=== PATIENT | male | born 1950 ===

== ENCOUNTER 2018-04-29 18:15 | Inpatient (IN) | payer MEDICARE, BC ==
[~2018-04-29] VITALS: Ht 188 cm; Wt 105.9 kg
[~2018-04-29 18:15] MED LIST: ALBU90OI INH; AMIO200 PO; CARV25 PO; DIGO.125 PO; LOSA25 PO; POTCHL20ER PO; TORSE20 PO; XARELTO20 MG PO
[2018-04-29] MEDS ORDERED: ASPI325EC PO (18:32)
[2018-04-29 19:41] LABS: BASOPHILS ABSOLUTE AUTO 0.04 K/mm3 (0.00-0.23); BASOPHILS PERCENT AUTO 1 % (0-2); EOSINOPHILS ABSOLUTE AUTO 0.11 K/mm3 (0.00-0.68); EOSINOPHILS PERCENT AUTO 3 % (0-6); Hematocrit 43.3 % (37.0-53.0); Hemoglobin 15.1 g/dL (13.5-17.5); IMMATURE GRAN ABSOLUTE AUTO 0.02 K/mm3 (0.00-0.10); IMMATURE GRAN PERCENT AUTO 1 % (0-1); LYMPHOCYTES ABSOLUTE AUTO 0.82 K/mm3 (0.84-5.20); LYMPHOCYTES PERCENT AUTO 20 % (21-46); MONOCYTES ABSOLUTE AUTO 0.86 K/mm3 (0.16-1.47); MONOCYTES PERCENT AUTO 20 % (4-13); Mean Corpuscular HGB 33.1 pg (26.0-34.0); Mean Corpuscular HGB Conc 34.9 g/dL (31.5-36.5); Mean Corpuscular Volume 95 fL (80-100); Mean Platelet Volume 8.9 fL (9.1-12.4); NEUTROPHILS ABSOLUTE AUTO 2.36 K/mm3 (1.96-9.15); NEUTROPHILS PERCENT AUTO 56 % (41-73); Platelet Count 113 K/mm3 (150-400); RDW Coefficient Variation 11.5 % (11.7-14.2); Red Blood Cell Count 4.56 M/mm3 (4.30-5.90); White Blood Cell Count 4.21 K/mm3 (4.00-11.30)
[2018-04-29 20:01] LABS: Alanine Aminotransfer (ALT/SGP 69 U/L (12-78); Albumin, Blood 3.7 g/dL (3.4-5.0); Alk Phos 92 U/L (50-136); Anion Gap 11 mmol/L (6-16); Aspartate Aminotrans (AST/SGOT 44 U/L (12-37); Bilirubin, Total 0.5 mg/dL (0.1-1.0); Blood Urea Nitrogen 12 mg/dL (8-24); Bun/Creatinine Ratio 16.8 (12.0-20.0); CO2, Blood 25 mmol/L (21-32); Chloride, Blood 99 mmol/L (98-108); Creatinine, Blood 0.72 mg/dL (0.60-1.20); Ethanol (Alcohol), Blood, Med 213 mg/dL; Globulin, Blood 3.8 g/dL (2.2-4.0); Glomerular Filtration Rate >60 (60-); Glucose, Blood 352 mg/dL (70-99); Potassium, Blood 4.1 mmol/L (3.5-5.5); Sodium, Blood 135 mmol/L (136-145); Total Protein, Blood 7.5 g/dL (6.4-8.2)
[2018-04-29 21:00] LABS: U Amphetamine Screen Not Detected; U Barbituate Screen Not Detected; U Benzodiazapine Screen Not Detected; U Buprenorphine Screen Not Detected; U Cannabinoids Screen Not Detected; U Cocaine Screen Not Detected; U Methadone Screen Not Detected; U Methamphetamine Screen Not Detected; U Opiates Screen Not Detected; U Oxycodone Screen Not Detected; U Phencyclidine Screen Not Detected; U Propoxyphene Screen Not Detected
--- NOTE | 2018-04-30 00:09 | NUR ---
ASSUMING CARE RECEIVED PT REPROT FROM ER NURSE. PT IS BEING ADMITTED DUE TO ETOH WITHDRAWAL. PT TRANSFERED TO THE ICU VIA STRETCHER ESCORTED BY ER NURSE. PT ABLE TO TRANSFER SELF TO ICU BED WITH MINIMAL ASSISTANCE. PT IS ALERT AND ORIENTED AT THE TIME OF ARRIVAL TO THE UNIT. PT IS CALM AND COOPERATIVE AT THIS TIME. PT REPROTS THAT HE DRINKS MULTIPLE BOTTLES OF WINE DAILY. PT IS TREMULOUS AT THE TIME OF ARRIVAL TO UNIT. PT PROVIDED 25MG LIBRIUM SHORTLY AFTER ARRIVAL TO UNIT. PT REPORTS THAT HE IS VERY TREMULOUS DAILY WHEN HE WAKES UP AND NEEDS TO DRINK TO REDUCE THE TREMORS AT HOME. PT STARTED ON NS AT 200ML/HR UPON ARRIVAL TO THE UNIT. PT BP WAS IN THE 160'S UPON ARRIVAL. BP DECREASED TO 140'S SYSTOLIC SHORTLY AFTER ARRIVAL. PT HR IS IN THE 110'S AND APPEARS TO BE SINUS AT THIS TIME. PT HAS A PREVIOUS HX OF A-FIB, NO A-FIB NOTED AT THIS TIME. PT IS ONLY EXHIBITING TREMORS AND MILD ANXIETY AT THIS TIME. PT DENIES ANY ONGOING AUDITORY OR VISUAL HALLUCINATIONS AT THIS TIME. PT REPORTS THAT HE HAS EXPERIENCED AUDITORY HALLUCINATIONS IN THE PAST. PT WAS FOUND TO HAVE ELVATED BLOOD GLUCOSE WITH LABS IN ER. PT HAS NO PREVIOUS HX OF DIABETES. PT REPORTS THAT HE HAS NOTICED DECREASED SENSATION IN HIS FEET THAT HAS INCREASED OVER "PAST COUPLE YEARS." ASSUMING CARE OF PT AT THE TIME OF ARRIVAL TO THE UNIT. PT IS CURRENTLY PCU STATUS. WILL CONTINUE TO MONITOR PT.
[2018-04-30 03:59] LABS: Alanine Aminotransfer (ALT/SGP 59 U/L (12-78); Albumin, Blood 3.1 g/dL (3.4-5.0); Albumin/Globulin Ratio 0.9 (0.8-1.8); Alk Phos 80 U/L (50-136); Anion Gap 8 mmol/L (6-16); Aspartate Aminotrans (AST/SGOT 40 U/L (12-37); Bilirubin, Total 0.8 mg/dL (0.1-1.0); Blood Urea Nitrogen 15 mg/dL (8-24); CO2, Blood 27 mmol/L (21-32); Calcium, Blood 8.2 mg/dL (8.5-10.1); Chloride, Blood 102 mmol/L (98-108); Creatinine, Blood 0.71 mg/dL (0.60-1.20); Globulin, Blood 3.5 g/dL (2.2-4.0); Glomerular Filtration Rate >60 (60-); Glucose, Blood 309 mg/dL (70-99); Potassium, Blood 3.9 mmol/L (3.5-5.5); Sodium, Blood 137 mmol/L (136-145); Total Protein, Blood 6.6 g/dL (6.4-8.2)
--- NOTE | 2018-04-30 07:18 | NUR ---
SHIFT SUMMARY NOTE PT HAS REMAINED ALERT AND ORIENTED WHILE AWAKE THROUGH THE NIGHT. PT HAS BEEN PROVIDED X3 25MG LIBRIUM AND X1 4MG ATIVAN IV THROUGH THE NIGHT. PT CIWA HAS INCREASED THROUGH THE NIGHT DESPITE MEDICATION ADMINISTRATION. PT CIWA AT THE TIME ATIVAN WAS ADMINISTRATED WAS APPROX 13. CIWA SCORES ARE MOSTLY RELATED TO TREMORS AND SWEATING. PT BP BECAME ELEVATED INTO THE 190'S AT APPROX 0500. BP DID NOT APPEAR TO RESPOND TO ATIVAN ADMINISTRATION. DR CLARK WAS CALLED AND ORDER RECEIVED FOR LABETELOL 10MG IV. LABETELOL PROVIDED ORDERED. PT HR HAS MAINTAINED IN THE 100-110'S THROUGH THE NIGHT. PT REMAINS ON NS AT 200ML/HR. PT BEGAN TO DESATURATE INTO THE HIGH 80'S WHILE SLEEPING AND 2L O2 WAS APPLIED. PT APPEARS TO BE MAINTAINING SPO2 IN THE HIGH 90'S WITH O2 VIA NC APPLIED. WILL REPORT [facility].
--- NOTE | 2018-04-30 13:36 | NUR ---
0800 PT SPEECH IS CLEAR BUT SLOW. DENIES PAIN OR DISTRESS. CIWA NOTED AT LEVEL 8. VS NOTED AND BP SL ELEVATED WITH PRN LOBRIUM GIVEN NOTED. PT UP TO TOILET WITH 1 PERSON SBA AND IS UNSTEADY ON FEET.
--- NOTE | 2018-04-30 13:41 | NUR ---
1300 PT IS AGAIN UP TO TOILET TO VOID AND BM. PT DENIES PAIN BUT IS CURRENTLY HAVING H/A BUT IMIPROVED AGTER UP TO [facility]. PT HAS TAKEN PO WELL AT BOTH MEALS. AND REMAIN MENTALLY CLEAR AND AWARE OF CONDITION WITH TREMORS REMAINING ABOUT THE SAME.
--- NOTE | 2018-04-30 15:33 | NUR ---
pt in bed surrounded by his daughter, grandsons, and mother. review of meds and CIWA scores with nursing. suggest decreasing some stimulus and addressing tremors. review with daughter startegies of care for her and her sons and family care. review of fathers history. 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 will update chaplian service for some supportive care and possible review startegies of rest and respite
--- NOTE | 2018-04-30 16:36 | NUR ---
PT RESTING WELL AND STATES HE COULD GO TO SLEEP. WILL FACILITATE SLEEP WITH LIGHTS OFF. PT HAS CALL LIGHT AND TREMORS ARE BETTER THAN 30-45 MIN AGO. CBG NOTED AND COVERED.
--- NOTE | 2018-04-30 18:16 | NUR ---
PT RESTING WELL WITH AT THIS TIME. EARLIER INSTRUCTED PT THAT HE WILL NOT BE AWAKENED FOR SUPPER. VS HAVE BEEN STABLE. TREMORS HAVE BEEN PRESENT TODAY BUT HAVE BEEN STEADY AND Q4H PRN LIBRIUM HAS MANNAGED SYMPTOMS.
--- NOTE | 2018-04-30 19:15 | NUR ---
ASSUMED PT CARE PT ASLEEP IN BED WITH BEDSIDE TABLE AND CALL LIGHT IN REACH. NS INFUSING AT 75MLS/HR. PT APPEARS COMFORTABLE AT THIS TIME.
--- NOTE | 2018-04-30 21:17 | NUR ---
NON-SUSTAINED V-TACH PT HAD AN EPISODE OF NON-SUSTAINED V-TACH AT APPROXIMATELY 1910; INFORMED DR. SWANSON WHO INPUTTED ORDERS FOR A STAT MAGNESIUM LAB.
[2018-05-01 04:07] LABS: Anion Gap 7 mmol/L (6-16); Blood Urea Nitrogen 14 mg/dL (8-24); Bun/Creatinine Ratio 18.8 (12.0-20.0); CO2, Blood 29 mmol/L (21-32); Chloride, Blood 99 mmol/L (98-108); Creatinine, Blood 0.74 mg/dL (0.60-1.20); Glomerular Filtration Rate >60 (60-); Glucose, Blood 186 mg/dL (70-99); Potassium, Blood 3.8 mmol/L (3.5-5.5); Sodium, Blood 135 mmol/L (136-145)
--- NOTE | 2018-05-01 04:53 | NUR ---
END OF SHIFT SUMMARY PT HAS BEEN PLEASANT AND COOPERATIVE WITH CARE ALL NIGHT. CIWA SCORES 10-11; MEDICATED WITH 50MG OF LIBRIUM Q4HRS PER CIWA. PT DENIED ANY AUDITORY, VISUAL, OR TACTILE HALLUCINCATIONS/DISTURBANCES; HOWEVER, DID CLAIM TO BE MILDLY ANXIOUS AND AT ONE POINT MENTIONED HE WAS EXPERIENCING SEVERE AGITATION THAT RESULTED IN TENSING UP. PT WAS REMINDED TO COMMUNICATE THOSE FEELINGS OF ANXIOUSNESS AND AGITATION IN ORDER FOR HIM TO BE MEDICATED APPROPRIATELY. PT CONTINUES TO BE VERY WEAK WITH TREMORS NOTED; THEREFORE, PT HAS BEEN A STANDBY ASSIST WITH USE OF TOILET. PT CONTINUES TO C/O ABDOMINAL PAIN; ATTEMPTED TO PASS A BOWEL MOVEMENT WITH NO SUCCESS. NS CONTINUES TO INFUSE AT 75MLS/HR THROUGH 20G IN LEFT FOREARM. PT MEDICATED X1 WITH LEBATOLOL D/T A SBP >200; MEDICATION WAS EFFECTIVE WITH SBP DECREASING TO 170'S. PT APPEARS TO BE COMFORTABLE AT THIS TIME WITH NO SIGNS OF ACUTE DISTRESS.
--- NOTE | 2018-05-01 10:16 | NUR ---
0745 PT ADMITS TO SL NAUSEA BUT NO H.A. PT TREMORS WITH EXTENDED ARMS IS ABOUT THE SAME. PT IS MENTALLY ALERT AND COOP WITH CARE AND PRN Q4 LIBRIUM HAS MAINTAINED SYMPTOMS AT CONSISTANT LEVEL.
--- NOTE | 2018-05-01 11:30 | NUR ---
PT REPORT CALLED TO MARK RIDER AND WILL TRANSFER TO [address] [place] [address] VIA W/C. PT CURRNETLY SLEEPING AND AROUSED FOR TRANSFER.
--- NOTE | 2018-05-01 18:37 | NUR ---
SHIFT SUMMARY PT TRANSFERRED FROM ICU THIS SHIFT. REPORT RECIEVED FROM CHIKA AT 1120. CIWA COMPLETED ON ARRIVAL. PT SCORING FROM 7 TO 12. MEDICATED PER EMAR. VSS. IV PATENT AND SALINE LOCKED. UP WITH 1 ASSIST. CBG MEASURED AC&HS, MEDICATED PER EMAR. PT EDUCATED ABOUT DIET AND DIABETES. PT PLEASANT AND COOPERATIVE WITH CARE. PT COMPLAINED OF CONSTIPATION, SUPPOSITORY ADMINISTERED PER EMAR. BED IN LOW POSITION, CALL LIGHT WITHIN REACH AND BED ALARM ON.
[2018-05-02 05:19] LABS: BASOPHILS ABSOLUTE AUTO 0.03 K/mm3 (0.00-0.23); BASOPHILS PERCENT AUTO 1 % (0-2); EOSINOPHILS ABSOLUTE AUTO 0.14 K/mm3 (0.00-0.68); EOSINOPHILS PERCENT AUTO 3 % (0-6); Hematocrit 41.2 % (37.0-53.0); IMMATURE GRAN ABSOLUTE AUTO 0.03 K/mm3 (0.00-0.10); IMMATURE GRAN PERCENT AUTO 1 % (0-1); LYMPHOCYTES ABSOLUTE AUTO 0.47 K/mm3 (0.84-5.20); LYMPHOCYTES PERCENT AUTO 11 % (21-46); MONOCYTES ABSOLUTE AUTO 0.95 K/mm3 (0.16-1.47); MONOCYTES PERCENT AUTO 23 % (4-13); Mean Corpuscular HGB 33.7 pg (26.0-34.0); Mean Platelet Volume 9.3 fL (9.1-12.4); NEUTROPHILS PERCENT AUTO 61 % (41-73); Platelet Count 84 K/mm3 (150-400); RDW Coefficient Variation 11.6 % (11.7-14.2); RDW Standard Deviation 42.5 fL (35.1-46.3); Red Blood Cell Count 4.16 M/mm3 (4.30-5.90); White Blood Cell Count 4.12 K/mm3 (4.00-11.30)
[2018-05-02 05:33] LABS: Mean Corpuscular Volume 99 fL (80-100)
[2018-05-02 05:40] LABS: Albumin, Blood 3.1 g/dL (3.4-5.0); Anion Gap 7 mmol/L (6-16); Blood Urea Nitrogen 14 mg/dL (8-24); Bun/Creatinine Ratio 17.9 (12.0-20.0); CO2, Blood 29 mmol/L (21-32); Calcium, Blood 8.5 mg/dL (8.5-10.1); Chloride, Blood 101 mmol/L (98-108); Creatinine, Blood 0.78 mg/dL (0.60-1.20); Glomerular Filtration Rate >60 (60-); Glucose, Blood 208 mg/dL (70-99); Phosphorus, Blood 3.9 mg/dL (2.5-4.9); Potassium, Blood 3.7 mmol/L (3.5-5.5); Sodium, Blood 137 mmol/L (136-145)
--- NOTE | 2018-05-02 06:37 | NUR ---
Rn summary: Patient is alert and oriented. Pt has required ativan x1 at the beginning of shift and Librium 50mg x2 this shift the last being 0522 for a CIWA of 10. Pt is mostly diaphoretic, mild CONNELLY and mod tremors. Pt up to the BR with walker. Pt states he is surprized how weak he is. Pt has not had any nausia. Pt has rested well and uses the call light appropriately. Emma changed this am.
--- NOTE | 2018-05-02 18:09 | NUR ---
PT IS A/OX3, PLEASANT AND COOPERATIVE, THE PT IS UP WITH 1 PERSON ASSIST TO THE BATHROOM, THE PT IS VERY WEAK AND SHAKEY ON HIS FEET, THE PT REPORTED A MILD-MODERATE CONNELLY T/O THE DAY, LIBRIUM 50 MG WAS GIVEN X2 TODAY FOR WITHDRAWL SYMPTOMS, CWAW 10, PT REPORTED HAVING SWEATS, CALL LIGHT IN REACH, BED IN THE LOW POSITION
--- NOTE | 2018-05-03 06:42 | NUR ---
SHIFT SUMMARY: Q4H CIWA SCORES PERFORMED THIS SHIFT. AT 2000, CIWA SCORE OF 12. ADMINISTERED 2MG IV ATIVAN AND 50 MG LIBRIUM. AT 0000, CIWA SCORE OF 7. NOTHING ADMINISTERED. AT 0400, CIWA SCORE OF 11. ADMINISTERED 2MG IV ATIVAN AND 50 MG LIBRIUM. PT IS EXPERIENCING BUE TREMORS, ANXIETY, N/V, DIAPHORESIS, AND HEADACHE. REMAINS A&O, PLEASANT, AND EXPRESSING CONFIDENCE IN BEING ABLE TO REMAIN SOBER. BP ELEVATED, HOWEVER NOT IN PARAMETERS FOR PRN IV HYDRALAZINE. PM CBG @ 323 - ADMINISTERED 9 UNITS OF HUMULIN. 20 G IN L F/A IS SALINE LOCKED. NO OTHER ACUTE CHNAGES TO REPORT WILL CONT MONITOR AND PROVIDE CARE UNTIL PRESUMED BY ONCOMING RN.
--- NOTE | 2018-05-03 07:37 | NUR ---
FALL PT EXPERIENCED FALL THIS AM DURING SHIFT CHANGE WHILE AMBULATING TO BATHROOM c PRESCHOOL PRINCIPAL. REVIEW FALL ASSESSMENT IN PROCESS INTERVENTIONS. PT ASSESSED AND ALL SYSTEMS WNL, BESIDES SMALL REDDENED AREA ON L SHOULDER. PT NOW A 2 PERS ASSIST c FWW AND GAIT BELT.
--- NOTE | 2018-05-03 15:53 | NUR ---
PT A/O X3, PLEASANT AND COOPERATIVE, THE PT IS A 1-2 PERSON ASSIST UP TO THE BATHROOM AND TO THE CHAIR, THE PT HAD A SHOWER TODAY, THE PT WAS GIVEN A SUPPOSITORY TODAY, AND HAD BOWEL MOVEMENT RESULTS, THE PT WAS MEDICATED WITH LIBRIUM FOR WITHDRAWL SYMPTOMS, LAST CWAW SCORE WAS 11, THE PT APPEARS TO BE BREATHING EASILY ON RA, PHYSICAL THERAPIST EVALUTED THE PT TODAY, CALL LIGHT IN REACH, FAMILY AT THE BEDSIDE, BED ALARM ON, BED IN THE LOW POSITION
--- NOTE | 2018-05-04 04:08 | NUR ---
CIWA 0400 APPEARS TO BE RESTING AT THIS TIME. LOW CIWA SCORE R/T REST. TM.
--- NOTE | 2018-05-04 05:13 | NUR ---
SHIFT SUMMARY A/O, ABLE TO MAKE NEEDS KNOWN. SOFT SPOKE; OFTEN TIMES DIFFICULT TO UNDERSTAND. COOPERATIVE WITH CARE. CIWA 0026 YEILDED TOTAL OF 6. CIWA @ 0400; APPEARED TO BE RESTING AT THAT TIME; AROUSED EASILY; CIWA TOTAL OF 1. STATED JUST WANTED TO GO BACK TO SLEEP. 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 BLOOD SUGAR 219; ADMINISTERED 5 UNITS OF INSULIN. NO ACUTE CHANGES NOTED OVERNIGHT. VSS/AFEBRILE. HYPERTENSION NOTED, BUT APPEARS ON TREND WITH SOME PREVIOUS PRESSURE. BED IN LOWEST POSITION. CALL LIGHT AND BELONGINGS WITHIN REACH. WCTM. REPORT TO ONCOMING RN.
--- NOTE | 2018-05-04 11:03 | NUR ---
Mr Yancey wanted his door closed and some quiet time. Review of CIWA and symptoms with nursing. Met with chaplian service for strategic plan of support anika Flynn will meet with pt. will update SS on follow up care connections. Spoke with family about some self care strategies last week will reenforce.
--- NOTE | 2018-05-04 15:48 | NUR ---
Patient was asleep when I entered the room and revived a bit when I spoke his name. Patient remained sleepy throughout the visit but was able to follow along with conversation. Patient was able to communicate that he was struggling with guilt, despair and addiction. I listened emapathically, explored issues of oliver and belief and sources of meaning and dignity. Patient presented as being very honest and as if he was speaking from the heart. The conversation was deep and led to what I believe were very sincere prayers from the patient and myself. I further encouraged patient to pursue his belief system. Patient's facial expressions and statements showed a gratitude for the visit, a restored oliver and a plan to head in a healthier direction. Pt. was smiling and more alert as I left the room.
--- NOTE | 2018-05-04 17:30 | NUR ---
Nursing advised family would like to speak called pt to brandon startegies of care and follow up. she is goint to [employer] tomorrow for packet. Briefly reviewed inpaitent vs out patient care. fears he has ETOH hid in his gun safe. She states she cannot access safe. but has removed the one weapon in the house. states she is totally unprepared for his needs and did not understand the detox process would be this hard. She has signed up for a [employer] group online. Met with pt he is somulent and fatigued. when awake he states he has a headache and at times buzzing in ears and light sensitive and sweating. He states he has chronic low grade pain in his hip, knee and leg. he states he is fatigued and sleeping. He states at home he wakes easily. he get up at 4 am with anexiety and fear of withdrawl but also its a cycle of knocking down the anexiety. He has been constipated. He states if he has fallen at home he does not know it. He is very fatigued and beating himself up for being a fool. Kept conversation minimal and supportive. Brief review of the fatiue and acheyness he will have the next. Provided brief supportive statements about care for him and his family. reenforced holistic care not just addiction care. will have chaplian follow and will update family.
--- NOTE | 2018-05-04 18:12 | NUR ---
SUMMARY PT SITTING UP IN BED EATING HIS DINNER, PT HAS BEEN MEDICATED PER EMAR FOR CIWA SCORES, PT HAS BEEN PLEASANT AND COOPERATIVE WITH CARE, VERY WEAK AND UNSTEADY ON HIS FEET, VSS, NO ACUTE CHANGES, WILL CONT TO MONITOR
--- NOTE | 2018-05-05 01:08 | NUR ---
0018 PT APPEARS TO BE RESTING AT THIS TIME. WCTM. BED IN LOWEST POSITION. CALL LIGHT IN REACH.
--- NOTE | 2018-05-05 05:17 | NUR ---
SHIFT SUMMARY A/O, ABLE TO MAKE NEEDS KNOWN. COOPERATIVE WITH CARE. DIFFICULT TO UNDERSTAND AT TIMES. MEDICATED PER EMAR FOR CIWA SCORES. APPEARED TO REST MOST OF SHIFT. VSS/AFEBRILE. DID NOT GET UP DURING THE NIGHT TO VOID AND DID NOT VOID THIS SHIFT. WILL ENCOURAGE THIS AM TO GET OOB. BED IN LOWEST POSITION. CALL LIGHT IN REACH. WCTM. REPORT TO ONCOMING RN.
[2018-05-05 11:56] LABS: Hematocrit 42.2 % (37.0-53.0); Hemoglobin 14.1 g/dL (13.5-17.5); Mean Corpuscular HGB 33.3 pg (26.0-34.0); Mean Corpuscular HGB Conc 33.4 g/dL (31.5-36.5); Mean Corpuscular Volume 100 fL (80-100); Mean Platelet Volume 9.3 fL (9.1-12.4); Platelet Count 103 K/mm3 (150-400); RDW Coefficient Variation 11.7 % (11.7-14.2); RDW Standard Deviation 42.1 fL (35.1-46.3); Red Blood Cell Count 4.24 M/mm3 (4.30-5.90); White Blood Cell Count 4.91 K/mm3 (4.00-11.30)
[2018-05-05 12:15] LABS: Anion Gap 6 mmol/L (6-16); Blood Urea Nitrogen 18 mg/dL (8-24); CO2, Blood 30 mmol/L (21-32); Calcium, Blood 8.5 mg/dL (8.5-10.1); Chloride, Blood 101 mmol/L (98-108); Creatinine, Blood 0.69 mg/dL (0.60-1.20); Glomerular Filtration Rate >60 (60-); Glucose, Blood 236 mg/dL (70-99); Potassium, Blood 3.9 mmol/L (3.5-5.5); Sodium, Blood 137 mmol/L (136-145)
--- NOTE | 2018-05-05 14:51 | NUR ---
I entered patient's room and was welcomed by the Patient and his Augustine. The conversation was immediately built on therapeutic alliance and covered everything from what steps they need to take moving forward to family unit dynamics. I provided pastoral counseling and spiritual direction and reinforced helpful attitudes and practices. I also provided prayer. Both patient and spouse were touched by the prayer as shown by their tears. Both expressed gratitude and restored oliver
--- NOTE | 2018-05-05 17:24 | NUR ---
SUMMARY PT RESTING QUIETLY IN BED, WAKES EASILY, PT CONT TO HAVE TREMORS AND IS DIAPHORETIC, OCC HEADACHES AND BUZZING IN HIS EARS, PT HAS BEEN MED PER EMAR FOR SYMPTOMS, PT HAS BEEN UP TO THE BATHROOM WITH 2 PERSON ASSIST, GAIT BELT AND WALKER, PT TAKES VERY SLOW SHUFFLING STEPS, PT IS PLEASANT AND COOPERATIVE WITH CARE, WILL CONT TO MONITOR
--- NOTE | 2018-05-06 07:57 | NUR ---
Rn summary: Patient is very sleepy. Pt c/o some headache and is diaphoretic. Pt also states he is very anxious but when asked, he states he has a history of being anxious and that is why he drank for 40 yrs was to deal with the anxiety. Pt has increased weakness from last week. He struggled to walk back from the BR. Pt pharmacist apprentice are equal but weak. Pt does have slight felt tremors. Medicated with libruim 25mg for CIWA of 9 at 2151 and Ativan 2mg for CIWA of 0200. Pt has slept soundly since. Pt speech is mumbly, possible sedation? Will continue to monitor, report to day shift nurse about concerns for weakness. Call light in reach.
--- NOTE | 2018-05-06 18:13 | NUR ---
SHIFT SUMMARY THE PATIENT PRESENTED THIS MORING WITH VITALS WNL, A&O X3 AND WITH LUNGS THAT WERE CLEAR, BUT DIM AT THE BASES. THE PATIENT HAS BEEN UP TO HIS CHAIR AND TO THE REST ROOM SEVERAL TIMES TODAY AND APPEARS MORE STUDY ON HIS FEET, WITH THE USE OF A WALKER. THE PATIENT ONLY REQUESTED ATIVAN ONCE TODAY. THE PATIENT RAMONELY WAS IN TODAY TO VISITED THE PATIENT. THE PATIENT'S DOCTOR REQUESTED THAT THE PATIENT BE ENCOURAGED TO WALK MUCH POSSIBLE. THE PATIENT IS EATING DINNER AT THIS TIME, WILL CONTINUE TO MONITOR.
--- NOTE | 2018-05-07 04:34 | NUR ---
Rn summary: Patient is alert but drowsy. Patient did walk to the BR at the beginning of shift with 2 assist and gaitbelt with walker. Pt walked very slowly. Pt states he is having some left leg pain from the knee to hip, no swelling or warmth noted during assessment. Pt states his neck and upper shoulders are tight and uncomfortable. Warm pack applied. Pt medicated x1 with ativan 2 mg for anxiety, diaphoresis. No tremors noted, Pt states he is sensitive to light and has a mild headache. Pt has slept soundly the rest of the shift. Breath sounds are diminished. Pt encouraged to deep breath, turn and reposition himself in bed, move his legs and ankles often. Will continue to monitor. Bogdan light in reach.
--- NOTE | 2018-05-07 16:33 | NUR ---
SHIFT SUMMARY THE PATIENT PRESENTED THIS MORNING WITH VITALS WNL, A&O X4 AND WITH LUNGS THAT WERE CLEAR, BUT DIM THROUGHOUT. THE PATIEN HAS BEEN UP TO HIS CHAIR AND TO THE RESTTROOM SEVERAL TIMES TODAY AND IS ENCOURAGED TO WALK MORE, BUT IS STILL VERY WEAK. THE PATIENT WAS GIVEN ANDD INSTRUCTED HOW TO USE AN INCENTIVESPIROMITOR TO HELP CLEAR HIS LUNGS WITH DR. KAYCE CAMPOVERDE. THE PATIENT HAS BEEN RESTING HEN NOT IN HIS CHAIR, WILL CONTINUE TO MONITOR.
[2018-05-08 05:25] LABS: BASOPHILS ABSOLUTE AUTO 0.05 K/mm3 (0.00-0.23); BASOPHILS PERCENT AUTO 1 % (0-2); EOSINOPHILS ABSOLUTE AUTO 0.19 K/mm3 (0.00-0.68); EOSINOPHILS PERCENT AUTO 4 % (0-6); Hematocrit 41.4 % (37.0-53.0); Hemoglobin 13.7 g/dL (13.5-17.5); IMMATURE GRAN ABSOLUTE AUTO 0.02 K/mm3 (0.00-0.10); IMMATURE GRAN PERCENT AUTO 1 % (0-1); LYMPHOCYTES ABSOLUTE AUTO 0.76 K/mm3 (0.84-5.20); LYMPHOCYTES PERCENT AUTO 18 % (21-46); MONOCYTES PERCENT AUTO 28 % (4-13); Mean Corpuscular HGB 32.8 pg (26.0-34.0); Mean Corpuscular HGB Conc 33.1 g/dL (31.5-36.5); Mean Corpuscular Volume 99 fL (80-100); Mean Platelet Volume 9.4 fL (9.1-12.4); NEUTROPHILS ABSOLUTE AUTO 2.07 K/mm3 (1.96-9.15); NEUTROPHILS PERCENT AUTO 48 % (41-73); Platelet Count 136 K/mm3 (150-400); RDW Coefficient Variation 11.5 % (11.7-14.2); RDW Standard Deviation 42.1 fL (35.1-46.3); Red Blood Cell Count 4.18 M/mm3 (4.30-5.90); White Blood Cell Count 4.29 K/mm3 (4.00-11.30)
[2018-05-08 05:37] LABS: Anion Gap 6 mmol/L (6-16); Blood Urea Nitrogen 17 mg/dL (8-24); CO2, Blood 30 mmol/L (21-32); Calcium, Blood 8.4 mg/dL (8.5-10.1); Chloride, Blood 102 mmol/L (98-108); Creatinine, Blood 0.85 mg/dL (0.60-1.20); Glomerular Filtration Rate >60 (60-); Glucose, Blood 131 mg/dL (70-99); Potassium, Blood 3.9 mmol/L (3.5-5.5); Sodium, Blood 138 mmol/L (136-145)
--- NOTE | 2018-05-08 07:49 | NUR ---
Rn Summary: Patient is more alert tonight. His speech is much more clear. He is stronger and walking faster back and forth to the BR. Still needs gait belt and FWW and 2 assist. Pt has had increased anxiety this am. Rested well until about 4. He states he is amazed at his weakness and anxiety he has experienced with his Etoh detox. Talked with and education given about his etoh use and detox. Encouragement given. Pt recieved dose of ativan 2mg this am at 0430 and repeated at 0630 due to severe anxiety. Pt states he felt so anxious he tried to climb out of bed to set off the bed alarm because staff hadnt come fast enough. Report to Emma RIDER. Call light in reach. Anxiety a little better.
--- NOTE | 2018-05-08 17:21 | NUR ---
*LATE ENTRY* DR BERGER ROUNDED ON THE PT. PLAN IS TO AMBULATE PT TODAY AND REDUCE THE USE OF SEDATING MEDICATION, TO SEE IF THE PT IMPROVES MORE. SPOKE TO FREDERICK FROM PHYSICAL THERAPY HE WILL SEE THE PT LATER TODAY. PER REPORT FROM NIGHT RN PT HAS IMPROVED GREATLY THROUGH THE WEEKEND AND WAS ABLE TO AMBULATE 2 PA TO THE BATHROOM.
--- NOTE | 2018-05-08 17:23 | NUR ---
*LATE ENTRY* PT WAS ABLE TO STAND AND PIVOT TRANSFER 1PA WITH A GAIT BELT AND ASSISTANCE WITH WEIGHT SHIFTING, TO THE CHAIR AT THE BEDSIDE. PT SEEMS TO BE BECOMING MORE ALERT. APPROXIMATELY [id number].
--- NOTE | 2018-05-08 17:26 | NUR ---
*LATE ENTRY* 1125 PT AMBULATED FROM THE CHAIR TO THE BATHROOM 2PA, MOVED BETTER THAN HE DID THIS MORNING, HAD A SMALL BM AND WENT BACK TO BED PRIOR TO LUNCH. PT STATED HE WILL GET UP INTO THE CHAIR FOR LUNCH.
--- NOTE | 2018-05-08 17:27 | NUR ---
*LATE ENTRY* PT WORKED WITH FREDERICK FROM PHYSICAL THEARAPY, AMBULATED TO THE BATHROOM. PT LISTING TO THE RIGHT MORE AFTER WORKING WITH THERAPY.
--- NOTE | 2018-05-08 17:30 | NUR ---
*LATE ENTRY* 1430 PT SPOUSE PRESENT IN THE ROOM, ASKED ABOUT PT BP'S AND MEETING WITH BIRDIE PARR THIS MORNING, CALLED BIRDIE TO HAVE HER COME SEE THE PT AND HIS SPOUSE. PT BP RECHECKED AND MEDS GIVEN, SPOUSE ASKED ABOUT DR BERGER, SHE WAS CONCERNED ABOUT THE CONVERSATION HE HAD WITH THE PT THIS AM, IT WAS RELAYED TO HER BY THE PT SHE WAS VERY CONFUSED ABOUT WHAT WAS SAID. RN UNABLE TO CLARIFY NOT PRESENT FOR THAT ENTIRE CONVERSATION. PT SPOUSE WANTED TO TALK ABOUT PT DISCHARGE PLAN AND IS INQUIREING WHY SNF IS NOT AN OPTION. SHE STATED SHE IS CONCERNED AND CAN NOT TAKE THE PT HOME THE WAY HE IS. CALLED DISCHARGE PLANNING TO PROVIDE RESOURCES TO THE PT. SPOUSE CONCERNED ABOUT SOME WORDING THAT THE DOCTOR USED THIS MORNING IN THE CONVERSATION WITH THE PT (SHE WAS NOT PRESENT FOR THE DR VISIT). REQUESTED A NEW DOCTOR, CALLED DR BERGER AND LEFT A MESSAGE AND INFORMED HOSPITALIST OFFICE OF THE PT REQUEST. SPOKE TO DR BERGER HE WILL BE COMING IN TOMORROW TO SEE THE PT, PLANNING FOR 10AM, PASSED THIS ON TO THE PT SPOUSE, SHE WILL PLAN TO BE HERE AT THAT TIME.
--- NOTE | 2018-05-08 18:24 | NUR ---
Scottie visits today with pt and family. pt still fatigued with headache and states he fees shakey. meka has lessened as day goes on. Called to meet with about concerns for future care and rehab. She fears he will fall at home. she is hopefull he will improve over next 24 hours. She has looked at dc and [facility]. 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 will update chaplins. Will get permission to have a sponser come see him.
--- NOTE | 2018-05-08 19:30 | NUR ---
SHIFT SUMMARY- PT HAS SHOWN COGNITIVE AND PHYSICAL IMPROVEMENT T/O THE SHIFT. AT CHANGE OF SHIFT PT WAS ASSISTED TO THE BATHROOM 1 PERSON WITH A FWW AND GAIT BELT CONTACT GUARD ASSIST. PT HAS BALANCE ISSUES AND NEEDS FREQUENT QUES. FOLLOWS DIRECTION WELL. WHEN HE FIRST STANDS HE TENDS TO TIP OVER BACKWARDS, HE SEEMS TO DEVIDE HIS WEIGHT WHEN HE THINKS ABOUT WALKING FORWARD. WHEN PROMPTED TO TAKE A STEP FORWARD HE REGAINS HIS BALANCE.
--- NOTE | 2018-05-09 04:38 | NUR ---
VSS, AFEBRILE, A/O AT TIMES, CONFUSED/ANXIOUS/FORGETFUL OTHER TIMES, CIWA PRN, 1 - 2 PA W/FWW TO BR, NO IV - MD OK. PLACEMENT ISSUE, IS REPORTED TO BE UPSET W/CARE. PLEASE READ NOTES.
--- NOTE | 2018-05-09 14:32 | NUR ---
Patient was resting when I entered the room but revived quickly as I quietly said his name. Patient seemed genuinely excited about his health improvements but voiced his concerns about the long road ahead. We talked about next steps in recovery and he expressed how wonderful the care has been that he received at [facility]. Patient mentioned that some good systems are in place and even though I offered further resources he felt they were headed in a good direction. I provided pastoral counseling center manager, inspirational quotes, reinforced helpful attitudes and practices. I also provided prayer to which the patient responded well. Patient expressed gratitude for my spiritual care during his stay and for the support given to his family and himself during this rough season.
--- NOTE | 2018-05-09 18:55 | NUR ---
PT UP TO CHAIR FOR MEALS TODAY, AMBULATED IN [place] WITH PHYSICAL THERAPY, SEE THERAPY NOTES. NO ACUTE CHANGES NOTED THIS SHIFT, WILL CONTINUE TO MONITOR AND REPORT TO ONCOMING RN.
--- NOTE | 2018-05-10 04:51 | NUR ---
VSS, AFEBRILE, A/O, MUCH MORE LUCID AND APPROPRIATE NOW, 1 PA W/FWW TO BR, NO IV - MD OK, CBG ACHS, PT WALKS AND RESPONDS MUCH BETTER THAN HE HAS BEFORE. PMHX: ETOH ABUSE, HTN. PT IS PLEASANT, JOKING AND IN GOOD SPIRITS.
[2018-05-10 05:08] LABS: BASOPHILS ABSOLUTE AUTO 0.06 K/mm3 (0.00-0.23); BASOPHILS PERCENT AUTO 2 % (0-2); EOSINOPHILS ABSOLUTE AUTO 0.19 K/mm3 (0.00-0.68); EOSINOPHILS PERCENT AUTO 6 % (0-6); Hematocrit 41.4 % (37.0-53.0); IMMATURE GRAN ABSOLUTE AUTO 0.01 K/mm3 (0.00-0.10); IMMATURE GRAN PERCENT AUTO 0 % (0-1); LYMPHOCYTES ABSOLUTE AUTO 0.68 K/mm3 (0.84-5.20); LYMPHOCYTES PERCENT AUTO 20 % (21-46); MONOCYTES ABSOLUTE AUTO 0.86 K/mm3 (0.16-1.47); MONOCYTES PERCENT AUTO 26 % (4-13); Mean Corpuscular HGB 33.4 pg (26.0-34.0); Mean Corpuscular HGB Conc 33.8 g/dL (31.5-36.5); Mean Corpuscular Volume 99 fL (80-100); Mean Platelet Volume 9.2 fL (9.1-12.4); NEUTROPHILS ABSOLUTE AUTO 1.55 K/mm3 (1.96-9.15); NEUTROPHILS PERCENT AUTO 46 % (41-73); Platelet Count 131 K/mm3 (150-400); RDW Coefficient Variation 11.4 % (11.7-14.2); RDW Standard Deviation 41.1 fL (35.1-46.3); Red Blood Cell Count 4.19 M/mm3 (4.30-5.90); White Blood Cell Count 3.35 K/mm3 (4.00-11.30)
[2018-05-10 05:40] LABS: Anion Gap 6 mmol/L (6-16); Blood Urea Nitrogen 15 mg/dL (8-24); Bun/Creatinine Ratio 18.8 (12.0-20.0); CO2, Blood 29 mmol/L (21-32); Calcium, Blood 8.5 mg/dL (8.5-10.1); Chloride, Blood 102 mmol/L (98-108); Glomerular Filtration Rate >60 (60-); Glucose, Blood 118 mg/dL (70-99); Sodium, Blood 137 mmol/L (136-145)
--- NOTE | 2018-05-10 13:32 | NUR ---
As I entered the patient's room I immediately noticed that the patient had better color, alertness and awareness. Patient greeted me warmly and was easy to engage in conversation. Patient expressed some apprehension about the road that lies ahead of him. I tried to make every resource and support that I thought might help, available. I provided some ideas that are laid out in the Bible as tools for recovery as well. I listened empathically and encouraged self-care. Patient expressed gratitude for my visits.
--- NOTE | 2018-05-10 18:26 | NUR ---
PT IS AO AND HAS BEEN COOPERATIVE OF ALL CARE. PT CALLS MOST OF THE TIME TO AMBULATE TO RESTROOM, BUT AT TIMES WILL BE TRYING TO GET UP PRIOR TO CALLING. 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 PT HAS BEEN EATING WELL AND SO NO DISTRESS AT THIS TIME.
--- NOTE | 2018-05-11 05:15 | NUR ---
VSS, AFEBRILE, A/O, C/O ANXIETY LAST NOC, PRN ATIVAN GIVEN, CBG ACHS, SBA W/FWW TO BR, NO IV - MD OK. PMHX: ETOH ABUSE x 40 YRS, HTN. PT IS MUCH MORE LUCID, STILL HAS TREMORS BUT IS MORE MOBILE AND ABLE TO AMBULATE MORE CONFIDENTLY.
--- NOTE | 2018-05-11 16:25 | NUR ---
Met with patients to review care plan. encouraged self care she is planning on a support group. Professional courtesy will be exteneded to the patients daughter who is a nurse in this facility. The patient gave permission to speak with her. will offer support for family care with our department and chaplian services. review of [facility] and sponsers and support for grandchildren.
--- NOTE | 2018-05-11 17:05 | NUR ---
SHIFT SUMAMARY PT AXO, PLEASANT AND COOPERATIVE WITH CARE. VSS, AFEBRILE. NO IV ACCESS. PATIENT WORKED WITH PT AND OT, SEE NOTE. PT UP WITH 1 ASSIST WITH FWW AND GB. NO ACUTE CHANGES THIS SHIFT. PT DENIES PAIN, N/V AND ANXIETY. PT RESTING AT THIS TIME, BED IN LOW POSITION, CALL LIGHT WITHIN REACH. SPOUSE PRESENT IN PT ROOM.
--- NOTE | 2018-05-12 06:21 | NUR ---
SHIFT SUMMARY PT IS A 68 Y/O M, ADMITTED FOR ETOH WITHDRAWAL. HE IS A&O X 4, AND IS ABLE TO AMBULATE 1PA IN THE ROOM. HE DID REPORT A HEADACHE, FOR WHICH HE WAS MEDICATED ONCE WITH PRN ULTRAM. HE DENIED ANY NAUSEA OR SOB, AND SLEPT WELL THROUGH THE NIGHT. VITAL SIGNS STABLE. NO OTHER ACUTE CHANGES IN PT CONDITION NOTED. WILL CONTINUE TO MONITOR AND TREAT PER EMAR UNITL HAND OFF TO DAY SHIFT.
[2018-05-12] MEDS ORDERED: GABA300 PO (10:55)
[2018-05-12] MEDS ORDERED: METF500C PO (10:56)
[2018-05-12] MEDS ORDERED: METO100ER PO (10:57)
--- NOTE | 2018-05-12 11:06 | NUR ---
pt up in chair alert, some stress and fear at leaving. Encouraged reducing fear and reenforced strategies and plan.
--- NOTE | 2018-05-12 11:57 | NUR ---
I entered room to find patient and his spouse packed up and ready to leave. They welcomed me into the room. Patient was alert and showed visible signs of yan and nervousness about heading home. We took some time to celebrate the turn around in patient's physical, mental and spiritual health. Patient voiced his appreciation for this newswriter, including my time, spiritual guaidance and prayer. I read an inspiring document that listed the Bible references that discribe God's heart towards man and then gave it to the patient. Patient received it with gratitude. I told patient that I would remain available to him, here at the hospital, should he need spiritual support in his recovery. Patient and spouse voiced their thankfulness for the spiritual care as well as for the other hospital staff.
--- NOTE | 2018-05-12 12:41 | NUR ---
DISCHARGE SUMMARY PT DISCHARGED TO HOME WITH HOME HEALTH. PT EDUCATED ON ETOH AND WD. PT EDUCATED ON NEW MEDICATIONS AND INSTRUCTED TO LAPEL STITCHER FROM PHARMACY. PT ALSO INSTRUCTED TO FOLLOW UP WITH PCP AND [facility]. PT STATES HE HAS AN APPOINTMENT ON TUESDAY WITH DR CARRION. PT LEFT ROOM VIA WHEELCHAIR WITH RN ESCORT AND WITH SPOUSE JUST PRIOR TO MESSAGE. NO IV PRESENT AND VERIFIED. BELONGINGS RETURNED.
== END 2018-05-12 12:32 | disposition home health service (06) | DRG 897 ==
LOC: ER 18:15 → ICUW 21:41 → ICUE 22:34 → MEDS 22:40
PROVIDERS: Emergency Medicine; Hospitalist; Internal Medicine; ADMIT Hospitalist
PROC: 3E0234Z Introduction of Serum, Toxoid and Vaccine into Muscle, Percutaneous Approach (ICD-10-PCS; principal; 2018-04-29)
DX: F10.239 Alcohol dependence with withdrawal, unspecified (principal); I42.9 Cardiomyopathy, unspecified; I10 Essential (primary) hypertension; E11.9 Type 2 diabetes mellitus without complications; E11.65 Type 2 diabetes mellitus with hyperglycemia; E66.9 Obesity, unspecified; D69.6 Thrombocytopenia, unspecified; I48.0 Paroxysmal atrial fibrillation; Z79.82 Long term (current) use of aspirin; Z68.28 Body mass index [BMI] 28.0-28.9, adult; Z23 Encounter for immunization
CPT/HCPCS: 36415; 76705; 80048; 80053; 80069; 82947; 83036; 83735; 85025; 85027; 85651; 90686; 93005; 93010; 96374; 97110; 97116; 97163; 97165; 97530; 99285-25; G0008; G0480; J1650; J1815; J2060; J7030

== ENCOUNTER 2020-11-24 09:39 | Emergency (ER) | payer MEDICARE, BC ==
[~2020-11-24] VITALS: Ht 188 cm; Wt 99.8 kg
[~2020-11-24 09:39] MED LIST changes: +ASPI325EC PO; +GABA300 PO; +METF500C PO; +METO100ER PO
[2020-11-24 14:22] LABS: Anion Gap 3 mmol/L (6-16); Blood Urea Nitrogen 20 mg/dL (8-24); Bun/Creatinine Ratio 19.8 (12.0-20.0); CO2, Blood 31 mmol/L (21-32); Calcium, Blood 9.1 mg/dL (8.5-10.1); Chloride, Blood 104 mmol/L (98-108); Creatinine, Blood 1.01 mg/dL (0.60-1.20); Glomerular Filtration Rate >60 (60-); Glucose, Blood 91 mg/dL (70-99); Potassium, Blood 4.8 mmol/L (3.5-5.5); Sodium, Blood 138 mmol/L (136-145)
[2020-11-24] MEDS ORDERED: XARELTO20 MG PO (14:46)
[2020-11-24] MEDS ORDERED: Norco 5-325 Ta1 EACH PO (14:58)
== END 2020-11-24 15:02 | disposition home or self-care (01) ==
LOC: ER 09:39
PROVIDERS: Physician Assistant
DX: I82.431 Acute embolism and thrombosis of right popliteal vein (principal); Z91.09 Other allergy status, other than to drugs and biological substances; Z79.82 Long term (current) use of aspirin
CPT/HCPCS: 80048; 93971; 99283-25

== ENCOUNTER 2024-10-31 06:20 | Day surgery (SDC) | payer MEDICARE, BC ==
[~2024-10-31] VITALS: Ht 188 cm; Wt 91.8 kg
[2024-10-31] VITALS (9 sets, daily range): BP systolic 158–194; BP diastolic 57–93
[~2024-10-31 06:20] MED LIST changes: +ELIQUIS5 M2 PO; +K2 LIQUID90 MCG/0.5; +LOSA50 PO; +MAGNESIUM OXID500 MG; +MERIBIN5 MG; +METO50ER PO; +Norco 5-325 Ta1 EACH PO; +OMEGA-3 21001050 MG; +TERBINAFINE15 GM TOP; +TOCO1000; +Vitamin B Comple1 EA PO; +Vitamin D1000 UNI1 PO; +ZINC15; +[UNRECOGNIZED DRUG - OTHER]
[2024-10-31] MEDS ORDERED: CeFAZolin Sodium 2,000 MG in NS 100 ML IV SCH (06:25)
[2024-10-31] MEDS ORDERED: Bupivacaine 0.5% HCl 5 MG/ML 30MLVIAL ONE ×2 (06:55→07:01)
--- NOTE | 2024-10-31 07:19 | NUR ---
AMBULATORY INTO SDS. PT REPORTS 4/10 RIGHT GROIN PAIN AND ANXIETY. SBP 190'S. HISTORY AND ALLERGIES REVIEWED. LUNGS CLEAR. NPO STATUS CONFIRMED. WILL RE-CHECK BP.
[2024-10-31] MEDS ORDERED: Etomidate 2MG / ML 10ML Vial ONE (07:25)
[2024-10-31] MEDS ORDERED: FentaNYL Citrate 50 MCG/ML 2 ML Injection ONE ×2 (07:27→08:16)
[2024-10-31] MEDS ORDERED: Ondansetron HCl 2 MG / ML 2ML Vial ONE (07:35)
[2024-10-31] MEDS ORDERED: Dexamethasone Sod Phos 10 MG/ML 1ML VIAL ONE (07:35)
[2024-10-31] MEDS ORDERED: Rocuronium Bromide 10 MG/ML 5ML Injection IV ONE ×2 (07:40→08:41)
[2024-10-31] MEDS ORDERED: HYDROmorphone HCl/Pf 1MG SYR IV PRN (07:45)
[2024-10-31] MEDS ORDERED: ePHEDrine Sulfate 50 MG/ML 1ML Injection IV PRN (07:45)
[2024-10-31] MEDS ORDERED: Ondansetron HCl 2 MG / ML 2ML Vial IV PRN (07:45)
[2024-10-31] MEDS ORDERED: Metoclopramide HCl 5MG / ML 2ML Vial IV PRN (07:45)
[2024-10-31] MEDS ORDERED: Albuterol 2.5 MG/3 ML VIAL INH PRN (07:45)
[2024-10-31] MEDS ORDERED: FentaNYL Citrate 50 MCG/ML 2 ML Injection IV PRN ×2 (07:45)
[2024-10-31] MEDS ORDERED: Morphine Sulfate 4 MG/1 ML Injection IV PRN (07:50)
[2024-10-31] MEDS ORDERED: Ketorolac Tromethamine 30mg Vial ONE (08:41)
[2024-10-31] MEDS ORDERED: Sugammadex Sodium 200 MG/2ML SDV (100 MG/ML) ONE (08:41)
[2024-10-31] MEDS ORDERED: HYDROcodone 5-APAP 325 TAB PO PRN (09:15)
--- NOTE | 2024-10-31 10:04 | NUR ---
Discharge instructions reviewed with patient. Patient verbalizes understanding. Copy given to patient to take home. Dressing c/d/i. Prescription placed in discharge folder. Patient States Post-Procedure ride home has been arranged. Discharged via wheelchair to private car for ride home.
== END 2024-10-31 10:05 | disposition home or self-care (01) ==
LOC: ORSCMMR 06:20 → ORD 07:30 → ORSCMMR 07:30 → ORD 09:00 → ORSCMMR 10:05
PROVIDERS: Surgery
PROC: 0YU50JZ Supplement Right Inguinal Region with Synthetic Substitute, Open Approach (ICD-10-PCS; principal; 2024-10-31 07:30)
DX: K40.90 Unilateral inguinal hernia, without obstruction or gangrene, not specified as recurrent (principal); D17.6 Benign lipomatous neoplasm of spermatic cord; I10 Essential (primary) hypertension; I48.0 Paroxysmal atrial fibrillation; Z79.01 Long term (current) use of anticoagulants; E11.40 Type 2 diabetes mellitus with diabetic neuropathy, unspecified; Z79.899 Other long term (current) drug therapy
CPT/HCPCS: 82947; C1781; J0690; J1100; J1885; J2405; J2704; J3010; J7120